=== PATIENT | male | born 1950 ===

== ENCOUNTER 2020-12-16 10:23 | Inpatient (IN) | payer MEDICARE ==
[2020-12-16 11:06] LABS: Hemoglobin 12.8 g/dL (14.0-18.0); Mean Corpuscular HGB CONC 33.2 g/dL (32.0-36.0); Mean Corpuscular Hemoglobin 31.1 pg (27.0-31.0); Mean Corpuscular Volume 93.6 fL (78.0-98.0); Mean Platelet Volume 7.7 fL (7.4-10.4); Platelet Count 138 thou/uL (130-400); RBC Distribution Width 11.9 % (11.5-14.5); Red Blood Cell (RBC) Count 4.13 mill/uL (4.70-6.10); White Blood Cell (WBC) Count 4.6 thou/uL (4.8-10.8)
[2020-12-16 11:23] LABS: Band 4 % (5-11); Hypochromia SLIGHT = 6-15 cells (100X) (0-5/hpf); Lymphocytes 22 % (21-51); MDiff Complete? YES; Monocytes 19 % (0-10); Neutrophil 53 % (42-75); Platelet Morphology Comment Appears Adequate; Reactive Lymphocytes 2 % (0-10)
[2020-12-16 11:31] LABS: ALT (SGPT) 12 U/L (8-55); AST (SGOT) 22 U/L (5-34); Albumin 3.8 g/dL (3.4-4.8); Alkaline Phosphatase 59 U/L (40-110); Anion Gap 14 mmol/L (10-20); BUN (Urea Nitrogen) 13 mg/dL (8.4-25.7); Bilirubin, Total 1.2 mg/dL (0.2-1.2); Calc. Creatinine Clearance 0 mL/min (70-130); Calcium 8.7 mg/dL (7.8-10.44); Carbon Dioxide 25 mmol/L (23-31); Chloride 101 mmol/L (98-107); Globulin 2.7 g/dL (2.4-3.5); Glucose 149 mg/dL (83-110); Potassium 3.9 mmol/L (3.5-5.1); Protein, Total 6.5 g/dL (5.8-8.1); Sodium 136 mmol/L (136-145)
[2020-12-16 11:52] LABS: INR-International Normal Ratio 1.1
[2020-12-16 11:53] LABS: PTT 37.4 sec (22.9-36.1)
[2020-12-16] MEDS ORDERED: Heparin 5,000 UNITS/ML VIAL ONE (17:18)
[2020-12-16] MEDS ORDERED: Protamine Sulfate 50 MG/5 ML VIAL ONE (17:18)
[2020-12-16] MEDS ORDERED: Ondansetron PF 4 MG/2 ML Vial ONE (17:47)
[2020-12-16] MEDS ORDERED: Dexamethasone 20 MG/5 ML VIAL ONE (17:47)
[2020-12-16] MEDS ORDERED: Glycopyrrolate 0.2 MG/ML 5 ML SYRINGE ONE (17:47)
[2020-12-16] MEDS ORDERED: PROPOFOL 200 MG/20 ML VIAL ONE (17:47)
[2020-12-16] MEDS ORDERED: Ketorolac Tromethamine 30 MG/ML VIAL ONE (17:47)
[2020-12-16] MEDS ORDERED: Rocuronium Bromide 10 MG/ML (10ML VIAL) ONE (17:47)
[2020-12-16] MEDS ORDERED: Lidocaine 1% PF 5 ML VIAL ONE (17:47)
[2020-12-16] MEDS ORDERED: Labetalol HCl 100 MG/20 ML VIAL ONE (17:47)
[2020-12-16] MEDS ORDERED: Bupivacaine PF 0.5% 30 ML VIAL ONE (18:05)
[2020-12-16] MEDS ORDERED: EPINEPHrine 1 MG/ML AMP ONE (18:05)
[2020-12-16] MEDS ORDERED: Acetaminophen 325 MG TAB PO PRN (18:47)
[2020-12-16] MEDS ORDERED: Fentanyl 100 MCG/2 ML VIAL SLOW IVP PRN (18:50)
[2020-12-16] MEDS ORDERED: HYDROcodone/Acetaminophen 10/325 mg Tablet PO PRN (18:50)
[2020-12-16] MEDS ORDERED: Ketorolac Tromethamine 30 MG/ML VIAL IVP PRN (18:50)
[2020-12-16] MEDS ORDERED: Ondansetron PF 4 MG/2 ML Vial IVP PRN (18:50)
[2020-12-16 20:08] VITALS: BMI 28.1
[2020-12-16] MEDS ORDERED: Carbidopa/Levodopa 25-100 mg Tablet PO SCH (21:00)
[2020-12-16] MEDS ORDERED: Atorvastatin Calcium 10 MG TAB PO SCH (21:00)
[2020-12-17 00:28] LABS: SARS-CoV-2 NAA Rapid Test Not Detected (NotDetected)
[2020-12-17] MEDS ORDERED: Levothyroxine Sodium 75 MCG TAB PO SCH (06:00)
[2020-12-17 07:42] VITALS: BP 124/70; TEMP 98.4
[2020-12-17] MEDS ORDERED: Valsartan 80 MG TAB PO SCH (09:00)
[2020-12-17] MEDS ORDERED: Carbidopa/Levodopa 10-100 mg Tablet PO SCH (09:00)
[2020-12-17] MEDS ORDERED: Hydrochlorothiazide 25 MG TAB PO SCH (09:00)
[2020-12-17] MEDS ORDERED: Escitalopram Oxalate 10 mg Tablet PO SCH (09:00)
== END 2020-12-17 09:15 | disposition home or self-care (01) | DRG 254 ==
LOC: ERS 10:23 → SDC 15:41 → 2NO 16:00
PROVIDERS: ADMIT Thoracic Surgery (Cardiothoracic Vascular Surgery); ATTEND Thoracic Surgery (Cardiothoracic Vascular Surgery)
PROC: 04BK0ZZ Excision of Right Femoral Artery, Open Approach (ICD-10-PCS; principal; 2020-12-16)
DX: I72.4 Aneurysm of artery of lower extremity (principal); Z20.822 Contact with and (suspected) exposure to COVID-19; I10 Essential (primary) hypertension; E78.00 Pure hypercholesterolemia, unspecified; E03.9 Hypothyroidism, unspecified; G25.81 Restless legs syndrome; F41.9 Anxiety disorder, unspecified; Z79.890 Hormone replacement therapy; Z79.899 Other long term (current) drug therapy
CPT/HCPCS: 36415; 76936; 80053; 85025; 85610; 85730; J0171; J1100; J1644; J1885; J2405; J2704; J2720; S0020; U0002